=== PATIENT | male | born 1950 | race Caucasian/White ===

== ENCOUNTER 2016-11-05 17:43 | Observation (INO) | payer OTHER ==
--- NOTE | ~2016-11-05 | DS ---
Discharge Summary [facility] [address] [facility] [place]. [address] NAME: RICHARD CURIEL : 54 STATUS : ADM Poonam PAT#: [id number] AGE: 66 ADM/REG DATE : 11/05/16 MR#: [id number] REPORT SERV DATE: 11/08/16 DICTATED BY: VAMSHI RAYMOND DATE: 11/08/16 REPORT STATUS : Draft TRANSCRIBED BY: MODL DATE: 11/08/16 ADMISSION DATE: 11/05/2016 DISCHARGE DATE: 11/08/2016 FINAL HOSPITAL DIAGNOSES: 1. Mastoiditis. 2. Diabetes. 3. Arthritis. 4. Chronic kidney disease. 5. Hypertension. 6. History of kidney stones. CONSULTATIONS: Dr. Santos Mejia, ENT. PROCEDURES: CT scan of the head done on 11/05/2016, showing bilateral total mastoiditis. CURRENT PHYSICAL FINDINGS AND HISTORY OF PRESENT ILLNESS: Please see initial dictated H and P by Dr. Mcgraw. In brief, the patient is a 66-year-old male, with above medical history, who presented for non resolving headaches and ear pain. Diagnosed with mastoiditis on admission. Vital signs at time of presentation, BP was 136/75, blood pressures have averaged 120s to 130s. He has been afebrile during his hospital stay. Heart rates have been in the 60s to 70s and O2 saturations were normal on room air. LABORATORY DATA: Initial lab work showed a BMP with a sodium of 134 and a creatinine of 1.54 on admission. Creatinine decreasing to 1.48 on 11/06/2016. Per numbers here, it appears his baseline is between 1.3 and 1.7. Blood sugars were 200s on admission. TSH was 1.4. A1c was 7.2, white count was 7 on admission. Blood cultures done on 11/05/2016 are negative at this point. HOSPITAL COURSE: The patient was admitted through he was started on antibiotics, sliding scale insulin coverage, and electrolyte protocol, as well as a diabetic diet. DVT prophylaxis. Home medications were reviewed and ordered appropriately. He was initially started on Zosyn, but was changed to Unasyn by ENT. He was started on Levemir in addition to his sliding scale. His pain decreased and he had no other significant complications. He was followed by ENT until 11/07/2016 and felt stable for discharge with outpatient followup. The patient was in agreement. DISPOSITION: Disposition as follows he is discharged home. MEDICATIONS: Allopurinol 300 at bedtime, Norvasc 5 one per day, aspirin 81, Tenormin 25, Lipitor 5, Proscar 5, Neurontin 600 at bedtime, Glucotrol 15 b.i.d., Glucophage 1000 b.i.d., Cozaar 100, multivitamin, niacin 2000, fish oil 2000, Hytrin 2, Effexor XR 75, Tylenol with codeine 300/15 t.i.d., Flexeril 10 b.i.d. p.r.n., Ambien 10 at bedtime, and a PPI. The patient is scheduling outpatient followup with ENT per their instructions. I did discuss his blood sugars with him. He has required sliding scale insulin and long-acting Discharge Summary [address] [place]. [address] NAME: RICHARD CURIEL : 54 STATUS : ADM Poonam PAT#: [id number] AGE: 66 ADM/REG DATE : 11/05/16 MR#: [id number] REPORT SERV DATE: 11/08/16 DICTATED BY: VAMSHI RAYMOND DATE: 11/08/16 REPORT STATUS : Draft TRANSCRIBED BY: ABIODUN DATE: 11/08/16 insulin here, although, his home A1c would suggest his blood sugars were more reasonably controlled at home. He feels his diet and lack of exercise here has contributed to his hyperglycemia. He states actually at home, he was periodically reducing his dose of glyburide for symptomatic hypoglycemia. I discussed with him sliding scale coverage at home until his blood sugars normalize, he was resistant secondary to cost. He states [facility] if his blood [facility] remained elevated for prescriptions from them from a cost standpoint, but he really expects his blood sugars to markedly improve at home. He was agreeable to seeking care in the ER at the [facility] or here, if he was running blood sugars consistently in excess of 300, and he voiced understanding. He will schedule follow up with ENT as instructed by them. He was given prescriptions for Augmentin and Percocet for pain. EMILIANO/ABIODUN Vamshi Raymond M.D. / [id number] CC: Vamshi Raymond M.D.
--- NOTE | ~2016-11-05 | HP ---
History And Physical [place] [id number] [facility] [place]. [address] NAME: RICHARD CURIEL : 54 STATUS : ADM Poonam PAT#: [id number] AGE: 66 ADM/REG DATE : 11/05/16 MR#: [id number] REPORT SERV DATE: 11/06/16 DICTATED BY: JALIL HUIZAR DATE: 11/06/16 REPORT STATUS : Draft TRANSCRIBED BY: MODL DATE: 11/06/16 DATE OF ADMISSION: 11/05/2016 CHIEF COMPLAINT: A 66-year-old male presenting with progressive headache and ear pain. HISTORY OF PRESENTING ILLNESS: The patient's history was obtained through careful interview with the patient and friend, coupled with review of [facility] and [facility] medical records. The patient states that he began to develop a headache first in 08/2016, and it has been progressive over that period of time. He does have a prescription for codeine that will sometimes help the headache ease off for a few hours at a time. He has tried "washing out" his ear for earwax, but this has only exacerbated his pain. For the last four days, he states that he could not even leave the house his head was hurting so bad. He describes the headache as in his temples going to the bone behind the ears, and it seems to affect his right ear worse than the left, although the left has had increasing pain over the last few days and has almost matched the pain in the right ear. He describes it as an aching quality, throbbing, 8/10 severity. He admits that his diabetes has been poorly controlled for about a week or so with blood sugars mostly in the 200s, where they mostly had been under excellent control prior to this illness. He has had a very poor appetite. He has had nausea, but no vomiting. He describes chills and night sweats, but no fevers. He has difficulty sleeping because of pain. REVIEW OF SYSTEMS: Otherwise, a 14-point review of systems was obtained and was negative. PAST MEDICAL HISTORY: 1. Diabetes. 2. Chronic kidney disease stage 3. Baseline creatinine of 1.3 to 1.7. 3. Hypertension. 4. Pancolitis, seen by Dr. Stiles in 06/2016. 5. Nephrolithiasis. 6. Ureteral stents by Dr. Pride, urologist. 7. Iron infusion. 8. Gout. 9. Benign prostatic hypertrophy. 10.Neuropathy. PAST SURGICAL HISTORY: 1. Bilateral knee surgery. History And Physical [address] [address] NAME: RICHARD CURIEL : 54 STATUS : ADM Poonam PAT#: [id number] AGE: 66 ADM/REG DATE : 11/05/16 MR#: [id number] REPORT SERV DATE: 11/06/16 DICTATED BY: JAILL HUIZAR DATE: 11/06/16 REPORT STATUS : Draft TRANSCRIBED BY: ABIODUN DATE: 11/06/16 2. UPPP for obstructive sleep apnea. 3. Finger surgery. ALLERGIES: SULFA. SOCIAL HISTORY: No tobacco abuse. Occasional alcohol use. He is . in good health. They live in [place], [place]. He is retired from doing foundry work. He has one stepson. FAMILY HISTORY: Mother with DVT. Father and siblings with alcoholism. Strong family history of COPD as well. CURRENT MEDICATIONS: Include glipizide 15 mg p.o. b.i.d., Cozaar 100 mg p.o. daily, metformin 1000 mg p.o. b.i.d., multivitamin, niacin 2000 mg p.o. q.h.s., fish oil, Hytrin 2 mg p.o. q.h.s., Tylenol with Codeine, some kind of proton pump inhibitor?, Effexor XR 75 mg p.o. daily, Ambien 10 mg p.o. q.h.s. PHYSICAL EXAMINATION: VITAL SIGNS: Temperature 98.7, pulse 82, blood pressure 136/75, respiratory rate 20, O2 saturation 95% on room air. GENERAL: A pleasant, cooperative male, but he looks as if he is in distress from his headache. HEENT: Pupils equal, round, and reactive to light. No conjunctival pallor. No scleral icterus. Nares are patent. Oropharynx is clear of obstruction. Moist mucous membranes. No intraoral lesions. When I examine the patient's ears, I do not appreciate significant amount of wax and I can visualize the tympanic membranes. The right tympanic membrane does appear diseased. I had a difficult time interpreting what I see, but there may even be perforation or at least some swelling, erythema, and discoloration, but the left eardrum has an almost purplish discoloration of unclear source. It does not appear as if this is a blood clot or hematoma, but just has a bizarre grayish blue discoloration. NECK: Trachea midline. No thyromegaly. LYMPH: No cervical lymphadenopathy. No supraclavicular lymphadenopathy. No posterior cervical lymphadenopathy. RESPIRATORY: Clear to auscultation at bases. No wheezes, rales, or rhonchi. Normal respiratory effort. CARDIOVASCULAR: Regular rate and rhythm. No murmurs, rubs, or gallops. No extremity edema is appreciated. ABDOMEN: Soft, nontender, nondistended. Normal bowel sounds auscultated throughout. No hepatosplenomegaly. DERMATOLOGICAL: Warm and dry. EXTREMITIES: No pallor, no cyanosis. PSYCHIATRIC: Normal affect. Good mood. Alert and oriented x3. LABORATORY DATA: White blood cell count 7, hemoglobin 14, hematocrit 40, platelets 171, MCV 101. Sodium 134, potassium 4.5, chloride 97, bicarb 26, BUN 33, creatinine 1.54, glucose 274. Lactic acid 1.2. History And Physical [address] [address] NAME: RICHARD CURIEL : 54 STATUS : ADM Poonam PAT#: [id number] AGE: 66 ADM/REG DATE : 11/05/16 MR#: [id number] REPORT SERV DATE: 11/06/16 DICTATED BY: JALIL HUIZAR DATE: 11/06/16 REPORT STATUS : Draft TRANSCRIBED BY: ABIODUN DATE: 11/06/16 IMAGING STUDIES: CT scan of the brain shows bilateral otomastoiditis. ASSESSMENT AND PLAN: 1. Bilateral otomastoiditis. Obtain an ear, nose, and throat consult with Dr. Mejia. Place on IV Zosyn for now. Place on IV narcotic pain management. 2. Uncontrolled diabetes. Check hemoglobin A1c. Continue home medications plus a low- dose basal insulin and sliding scale insulin. 3. Chronic kidney disease stage 3. L/BILLYL Jalil Huizar M.D. / [id number] CC: Erin Armas M.D.
--- NOTE | ~2016-11-05 | CN ---
Consultation Report [facility] [address] [place]. [address] NAME: RICHARD CURIEL : 54 STATUS : ADM Poonam PAT#: [id number] AGE: 66 ADM/REG DATE : 11/05/16 MR#: [id number] REPORT SERV DATE: 11/06/16 DICTATED BY: LADONNA MCGHEE DATE: 11/06/16 REPORT STATUS : Draft TRANSCRIBED BY: MODL DATE: 11/06/16 HOSPITAL CONSULTATION DATE OF CONSULTATION: 11/06/2016 SERVICE: Otolaryngology. REFERRING DIAGNOSIS: Bilateral otomastoiditis. HISTORY OF PRESENT ILLNESS: This is a 66-year-old, diabetic male who since Sunday has been complaining of excruciating pain in his right ear, especially behind his ear. He was seen at the [facility] but was not fully evaluated, was given some instructions to rinse out his ear canal and was told he would be mailed some medications. However, symptoms got worse, presented to the emergency room last night in extreme pain. CT scan revealed bilateral opacification, scattered opacification of the mastoid and middle ear spaces without bony destruction consistent with otomastoiditis. PAST MEDICAL HISTORY: Includes diabetes, chronic kidney disease, hypertension, history of nephrolithiasis, gout, BPH, and neuropathy. ALLERGIES: HE IS ALLERGIC TO SULFA MEDICATIONS. SOCIAL HISTORY: He does not use tobacco. Occasional alcohol. No drugs. PAST SURGICAL HISTORY: Includes bilateral knee surgery, uvulopalatopharyngoplasty, and surgery on his finger. The patient was admitted to the Hospitalist Service for management, was started on IV Zosyn. I reviewed the CT scan and the images myself. I saw no evidence of bony destruction. There was fluid in both mastoids. The sinuses were clear. PHYSICAL EXAMINATION: The patient is awake and alert, in some discomfort but in no acute distress. He answered all questions appropriately. Evaluation of the left ear, there was some fluid in the ear. This is likely from the ear rinsing that he did. The tympanic membrane looked healthy. The right side again, there was some fluid in the outer ear but not purulent fluid. The tympanic membrane on that side was bulging and infected appearing. No external nasal deformities. Internal nasal septum and turbinates are normal. Oral cavity and oropharynx reveal status post UPPP. Palpation of face and neck was unremarkable. ASSESSMENT: Bilateral acute otomastoiditis. I am going to change the Zosyn to Unasyn as this should cover typical acute bacteruria better. We will follow the patient for 24-48 hours. I do expect rapid improvement in his symptoms over this time. If he does not could possibly place ear tubes to relieve some of the pressure and allow for more direct treatment Consultation Report [place] [address] [place]. [address] NAME: RICHARD CURIEL : 54 STATUS : ADM Poonam PAT#: [id number] AGE: 66 ADM/REG DATE : 11/05/16 MR#: [id number] REPORT SERV DATE: 11/06/16 DICTATED BY: LADONNA MCGHEE DATE: 11/06/16 REPORT STATUS : Draft TRANSCRIBED BY: ABIODUN DATE: 11/06/16 of the otomastoiditis with topical therapy. Thank you for the consult. I will follow along with results. If there are any questions, please do not hesitate to call [phone]. PS/BILLYL Ladonna Mcghee MD / [id number] CC: Ladonna Mcghee MD
[2016-11-05 16:38] LABS: BASOPHILS 0.1 %; BASOPHILS ABSOLUTE 0.01 10/3/uL (0.0-0.16); EOSINOPHILS 1.9 %; EOSINOPHILS ABSOLUTE 0.13 10/3/uL (0.0-0.53); IMMATURE GRANULOCYTES 0.3 %; IMMATURE GRANULOCYTES ABSOLUTE 0.02 10/3/uL (0.0-0.11); LYMPHOCYTES 23.2 %; LYMPHOCYTES ABSOLUTE 1.62 10/3/uL (0.67-4.30); MEAN CORPUS HGB CONC 35.4 g/dL (32.0-36.0); MEAN CORPUSCULAR HEMOGLOB 35.8 pg (26.0-34.0); MEAN PLATELET VOLUME 9.4 fL (9.2-13.0); MONOCYTES 7.7 %; MONOCYTES ABSOLUTE 0.54 10/3/uL (0.21-1.20); NEUTROPHILS 66.8 %; NEUTROPHILS ABSOLUTE 4.65 10/3/uL (2.02-8.40); RBC DISTRIBUTION WIDTH 13.5 % (12.0-16.0)
[2016-11-05 16:39] LABS: ER CBC TAT 0 Hrs 08 Mins; HEMATOCRIT 39.8 % (40.0-51.0); HEMOGLOBIN 14.1 g/dL (13.6-17.8); MANUAL DIFF NO %; PLATELET COUNT 171 10/3/uL (150-400); RED CELL COUNT 3.94 10/6/uL (4.7-6.1)
[2016-11-05 16:53] LABS: A/G RATIO 0.8 (0.7-1.9); ALBUMIN 3.4 G/DL (3.5-5.0); ALKALINE PHOSPHATASE 135 U/L (45-117); BUN (BLOOD UREA NITROGEN) 33 MG/DL (6-23); CALCIUM, SERUM 9.3 MG/DL (8.5-10.4); CHLORIDE, SERUM 97 MMOL/L (96-112); CO2 (CARBON DIOXIDE) 26 MMOL/L (24-34); CREATININE 1.54 MG/DL (0.70-1.30); GFR AFRICAN AMERICAN 54 ML/MIN (>=60); GFR NON AFRICAN AMERICAN 47 ML/MIN (>=60); GLOBULIN 4.5 G/DL (2.5-4.1); GLUCOSE, SERUM 274 MG/DL (60-99); POTASSIUM, SERUM 4.5 MMOL/L (3.5-5.3); SGOT(AST) 25 U/L (5-40); SGPT(ALT) 61 U/L (5-65); SODIUM, SERUM 134 MMOL/L (135-148); TOTAL BILIRUBIN 0.5 MG/DL (0-1.2); TOTAL PROTEIN 7.9 G/DL (6.0-8.5)
[2016-11-05 16:55] LABS: LACTATE 1.2 MMOL/L (0.3-2.4)
[~2016-11-05 17:43] MED LIST: AMB10 PO; ASAB PO; ATEN25 PO; CIP5 PO; COD PO; COZAAR100 MG PO; DSS PO; EFFEXXR75 PO; FISH-EPA1000 MG PO; FLAG500TAB PO; FLEX PO; FLOMAX4 PO; GLUCOPHAGE1000 MG PO; GLUCOTRO10 PO; HYT2 PO; LEVAQUIN750 MG PO; LIPITOR10 PO; MULTIVIT/MIN PO; NEUR600 PO; NORV5 PO; PCET PO; PRILO PO; PROSCAR5 PO; PYR200 PO; SLO-NIACIN500 MG PO; THERA-GESI1 TOP; TYLENOL PO; Z300 PO; [UNRECOGNIZED DRUG - REMARK] PO
[2016-11-06 08:16] LABS: BASOPHILS 0.2 %; BASOPHILS ABSOLUTE 0.01 10/3/uL (0.0-0.16); EOSINOPHILS 2.8 %; EOSINOPHILS ABSOLUTE 0.17 10/3/uL (0.0-0.53); HEMATOCRIT 37.9 % (40.0-51.0); HEMOGLOBIN 13.1 g/dL (13.6-17.8); IMMATURE GRANULOCYTES 0.2 %; IMMATURE GRANULOCYTES ABSOLUTE 0.01 10/3/uL (0.0-0.11); LYMPHOCYTES 27.5 %; LYMPHOCYTES ABSOLUTE 1.66 10/3/uL (0.67-4.30); MEAN CORPUS HGB CONC 34.6 g/dL (32.0-36.0); MEAN CORPUSCULAR HEMOGLOB 35.2 pg (26.0-34.0); MEAN CORPUSCULAR VOLUME 101.9 fL (80-100); MEAN PLATELET VOLUME 9.1 fL (9.2-13.0); MONOCYTES 8.3 %; NEUTROPHILS ABSOLUTE 3.69 10/3/uL (2.02-8.40); PLATELET COUNT 154 10/3/uL (150-400); RBC DISTRIBUTION WIDTH 13.3 % (12.0-16.0); RED CELL COUNT 3.72 10/6/uL (4.7-6.1)
[2016-11-06 08:17] LABS: MANUAL DIFF NO %
[2016-11-06 08:19] LABS: INTERNATIONAL NORMAL RATI 1.1 UNITS (-)
[2016-11-06 08:36] LABS: A/G RATIO 0.7 (0.7-1.9); ALBUMIN 3.1 G/DL (3.5-5.0); ALKALINE PHOSPHATASE 139 U/L (45-117); CALCIUM, SERUM 9.4 MG/DL (8.5-10.4); CHLORIDE, SERUM 99 MMOL/L (96-112); CO2 (CARBON DIOXIDE) 29 MMOL/L (24-34); CREATININE 1.48 MG/DL (0.70-1.30); GFR AFRICAN AMERICAN 57 ML/MIN (>=60); GFR NON AFRICAN AMERICAN 49 ML/MIN (>=60); GLOBULIN 4.2 G/DL (2.5-4.1); POTASSIUM, SERUM 4.8 MMOL/L (3.5-5.3); SGOT(AST) 42 U/L (5-40); SGPT(ALT) 68 U/L (5-65); SODIUM, SERUM 137 MMOL/L (135-148); TOTAL BILIRUBIN 0.6 MG/DL (0-1.2); TOTAL PROTEIN 7.3 G/DL (6.0-8.5)
[2016-11-06 08:39] LABS: BUN (BLOOD UREA NITROGEN) 28 MG/DL (6-23); GLUCOSE, SERUM 214 MG/DL (60-99)
[2016-11-06 09:16] LABS: SED RATE 83 MM/HR (0-15)
[2016-11-08] MEDS ORDERED: AUG875 PO (14:26)
[2016-11-08] MEDS ORDERED: PCET PO (14:27)
== END 2016-11-08 15:06 | disposition home or self-care (01) ==
LOC: ER 17:43 → 5NO 20:14 → 4SO 11-06 14:55
PROVIDERS: Hospitalist; Nurse Practitioner
DX: H70.93 Unspecified mastoiditis, bilateral (principal); I12.9 Hypertensive chronic kidney disease with stage 1 through stage 4 chronic kidney disease, or unspecified chronic kidney disease; E11.22 Type 2 diabetes mellitus with diabetic chronic kidney disease; E11.40 Type 2 diabetes mellitus with diabetic neuropathy, unspecified; N18.3 Chronic kidney disease, stage 3 (moderate); M10.9 Gout, unspecified; N40.0 Benign prostatic hyperplasia without lower urinary tract symptoms; F32.9 Major depressive disorder, single episode, unspecified; D64.9 Anemia, unspecified; E78.00 Pure hypercholesterolemia, unspecified; M06.9 Rheumatoid arthritis, unspecified; K21.9 Gastro-esophageal reflux disease without esophagitis; Z98.890 Other specified postprocedural states; Z87.442 Personal history of urinary calculi; Z88.2 Allergy status to sulfonamides; Z79.899 Other long term (current) drug therapy; Z83.6 Family history of other diseases of the respiratory system; Z79.82 Long term (current) use of aspirin; Z96.653 Presence of artificial knee joint, bilateral
CPT/HCPCS: 70480; 80053; 82962; 83036; 83605; 83735; 84443; 85025; 85610; 85652; 85730; 87040; 96372; 96374; 96375; 96376; 99285; A9270-GY; G0378; J0295; J1170; J2405; J2543